=== PATIENT | female | born 1965 | race Two or more races ===

== ENCOUNTER 2018-11-12 15:44 | Emergency (ER) | payer BC ==
[~2018-11-12] VITALS: Ht 160 cm; Wt 76.2 kg
[2018-11-12 15:49] VITALS: BP 156/79
[2018-11-12] MEDS ORDERED: LIDOCAINE 1%, 10ML INFIL ONE (16:30)
[2018-11-12] MEDS ORDERED: LIDOCAINE-MPF 1%, 5ML ONE (16:33)
== END 2018-11-12 16:55 | disposition home or self-care (01) ==
LOC: ED 16:37
DX: L02.415 Cutaneous abscess of right lower limb (principal); L03.115 Cellulitis of right lower limb
CPT/HCPCS: 10060; 99283; J3490